=== PATIENT | female | born 1955 | race Caucasian/White ===

== ENCOUNTER → 2023-11-12 15:59 | Outpatient (REF) | payer MEDICARE, OTHER, SELFPAY | LOC: WDC 15:59 | PROVIDERS: ATTENDING PHYSICIAN Family Medicine | DX: Z12.31 Encounter for screening mammogram for malignant neoplasm of breast (principal) | CPT/HCPCS: 77063; 77067 ==

== ENCOUNTER → 2023-12-03 09:18 | Outpatient (REF) | payer MEDICARE, OTHER, SELFPAY | LOC: RAD 09:18 | PROVIDERS: ATTENDING PHYSICIAN Family Medicine | DX: Z13.820 Encounter for screening for osteoporosis (principal); Z78.0 Asymptomatic menopausal state | CPT/HCPCS: 77080 ==

== ENCOUNTER 2024-08-23 18:41 | Emergency (ER) | payer MEDICARE, OTHER, SELFPAY ==
[2024-08-23 18:43] VITALS: BP 117/67
[2024-08-23 19:20] VITALS: BP 113/64
[2024-08-23 19:29] VITALS: BMI 25.6
--- NOTE | 2024-08-23 19:35 | ED.GENMED ---
History of Present Illness
General
Chief Complaint: Abdominal Symptoms
Source: patient
Exam Limitations: none
Time Seen by Provider: 08/23/24 19:16
History of Present Illness
History of Present Illness:
69-year-old female presents with onset of nausea vomiting diarrhea starting last evening. She is very fatigued. No chills or sweats. No chest pain or shortness of breath. She denies any blood in the vomit or the stool. No recent antibiotics.
She was around a sick family member with similar symptoms. No other complaints
Past History
Past History
ED Past Medical History: None
ED Past Surgical History: Cholecystectomy and Orthopedic
Social History
Tobacco: Non-smoker
Alcohol: Occasional
Personal:
Living: with family
Phy Exam
Physical Exam
Physical Exam:
General: Well-appearing female no acute respiratory distress
HEENT: Normocephalic atraumatic mucosa dry
Heart: Regular rate and rhythm no murmurs
Lungs: Clear no wheeze
Abdomen is soft nontender normal bowel sounds no guarding or rebound tenderness
Extremities: No cyanosis
Course
Orders/Labs/Results
Orders:
Orders
08/23/24 19:29
STOOL [C difficile Antigen & Toxins] Urgent
BUBBA Source: Feces/Stool
Specimen Description:
Stool Culture Urgent
BUBBA Source: Feces/Stool
Specimen Description:
0.9% Sodium Chloride 1000 ml [Nss] 1,000 ml IV BOLUS
Ondansetron Injectable [Zofran] 4 mg IV NOW STA
08/23/24 19:44
Complete Blood Count/With Diff Urgent
Comprehensive Metabolic Panel Urgent
Lipase Urgent
08/23/24 20:53
Acetaminophen [Tylenol] 650 mg PO NOW STA
Abnormal Lab Results
08/23/24
19:44
MCHC 32.9 L g/dL
(33.0-37.0)
Absolute Lymphs (auto) 0.2 L 10^3/uL
(1.2-3.4)
Neutrophils % 92.1 H %
(42.2-75.2)
Lymphocytes % 3.3 L %
(20.5-51.1)
Potassium 3.2 L mmol/L
(3.5-5.1)
BUN 25 H mg/dl
(7-17)
Glucose 162 H mg/dl
(70-99)
08/23/24 19:44
08/23/24 19:44
Vital Signs
Initial and Last Documented VS:
Initial Vital Signs
Temp Pulse Resp BP Pulse Ox
99 F 99 20 117/67 100
08/23/24 18:43 08/23/24 18:43 08/23/24 18:43 08/23/24 18:43 08/23/24 18:43
Last Documented Vital Signs
Temp Pulse Resp BP Pulse Ox
99 F 99 20 111/60 96
08/23/24 18:43 08/23/24 18:43 08/23/24 18:43 08/23/24 21:00 08/23/24 21:15
MDM/Problems Addressed
Differential Diagnosis Includes:
Patient with nausea vomiting and diarrhea. Recent sick contact. Could be viral illness. Consider electrolyte abnormality or dehydration. Abdomen exam benign. Considered imaging but not indicated at this time
Check stool cultures if able. Labs pending. Hydration and Zofran ordered
*Critical Care Note
Total Time (30-74mins, 75-104mins- exclusive of procedures): Not Applicable
Update Note
Update Note:
Patient reexamined feeling better nausea improved now tolerating oral fluids. Not able to provide stool sample at this point. Labs reviewed without significant finding. Suspect underlying viral illness. Recommended clear liquids prescribe
Zofran. Stable for discharge
ED Attending Note
-
Portions of this chart may have been created with voice recognition software.� Occasional wrong word or��sound alike� substitutions may have occurred due to the inherent limitations of voice recognition software.
Discharge Plan
Departure
Patient Disposition: Home (Routine Discharge)
Date of Disposition: 08/23/24
Time of Disposition: 21:32
Patient with high blood pressure during this ER visit?: No
Discharge Problem:
Nausea, vomiting and diarrhea
Instructions: Nausea and Vomiting, Adult (DC)
Prescriptions:
New
ondansetron 4 mg tablet,disintegrating
4 mg PO Q8H PRN (Reason: nausea and vomiting) Qty: 10 0RF
No Action
Bactrim
1 tab PO BID
Patient Comments:
PATIENT STATED SHE RECENTLY STARTED ON THIS--DOES NOT KNOW DOSAGE -started 01/06/10 for 10 days
Pepcid
1 tab PO PRN PRN (Reason: ABD. PAIN)
Patient Comments:
OTC DOSE
omeprazole [Prilosec] 40 MG capsule,delayed release(DR/EC)
40 mg PO DAILY Qty: 30 0RF
Patient Comments:
new prescription-not started yet
hydrocodone-acetaminophen 5 MG/500 MG tablet
1 tab PO Q4HPRN PRN (Reason: pain) Qty: 15 0RF
Patient Comments:
new prescription-not started yet
guaifenesin [Mucus Relief ER] 600 MG tablet extended release 12hr
600 mg PO Q12H
Referrals:
Aida Kendall DO [Family Provider] -
Activity Restrictions/Additional Instructions:
Drink plenty clear liquids. Use Zofran if needed for nausea. Advance to bland diet as tolerated. Return for worsening symptoms otherwise follow-up with your doctor
Interventions
Interventions:
*Risk Screen - Suicide Last Done: 08/23/24 18:43
*General Assessment Last Done: 08/23/24 19:30
*Neglect/Abuse Screening Last Done: 08/23/24 18:43
ED- Fall Risk Assessment Last Done: 08/23/24 19:31
*ED COVID-19 Vaccine History Last Done: 08/23/24 19:30
[id number] Assessment Last Done: 08/23/24 19:31
Discharge Date and Time
Print Language: SUDANESE
[2024-08-23] MEDS: NSS 1000 IV (19:42)
[2024-08-23] MEDS: ZOFRAN 4 MG IV (19:46)
[2024-08-23 19:53] LABS: % Basophils 0.2 % (0-2); % Immature Granulocytes 0.2 % (0-0.5); % Lymphocytes 3.3 % (20.5-51.1); % Monocytes 4.2 % (1.7-9.3); % Neutrophils 92.1 % (42.2-75.2); Absolute Lymphocytes 0.2 10^3/uL (1.2-3.4); Absolute Monocytes 0.3 10^3/uL (0.1-0.6); Absolute Neutrophils 6.1 10^3/uL (1.4-6.5); Hematocrit 41.7 % (37.0-47.0); Hemoglobin 13.7 g/dL (12.0-16.0); Mean Corp Hgb Conc. 32.9 g/dL (33.0-37.0); Mean Corpuscular Hgb 30.2 pg (27.0-31.0); Mean Corpuscular Volume 91.9 fL (81.0-99.0); Mean Platelet Volume 9.5 fL (7.4-10.4); Nucleated Red Blood Cells % 0 %; Platelet Count 241 10^3/uL (130-400); Red Blood Cell Count 4.54 10^6/uL (4.20-5.40); Red Cell Dist. Width 13.5 % (11.5-14.5); White Blood Cell Count 6.7 10^3/uL (4.8-10.8)
[2024-08-23 19:59] LABS: Albumin 4.3 g/dl (3.5-5.0)
[2024-08-23 20:00] VITALS: BP 108/56
[2024-08-23 20:10] LABS: ALT (SGPT) 26 U/L (0-35); AST (SGOT) 29 U/L (14-36); Alkaline Phosphatase 86 U/L (38-126); Blood Urea Nitrogen 25 mg/dl (7-17); Calcium 8.7 mg/dl (8.4-10.2); Carbon Dioxide 25 mmol/L (22-30); Chloride 103 mmol/L (98-107); Estimated Creatinine Clearance 91 ml/min; Glucose 162 mg/dl (70-99); Lipase 32 U/L (23-300); Potassium 3.2 mmol/L (3.5-5.1); Sodium 140 mmol/L (135-145); Total Bilirubin 0.5 mg/dl (0.2-1.3); Total Protein 6.8 g/dl (6.3-8.2); eGFR > 60.00
[2024-08-23] MEDS: TYLENOL 650 MG PO (20:56)
[2024-08-23 21:00] VITALS: BP 111/60
== END 2024-08-23 21:45 | disposition home or self-care (01) ==
LOC: EMR 18:41
PROVIDERS: Physician Assistant; EMERGENCY PHYSICIAN Emergency Medicine; FAMILY PHYSICIAN Family Medicine
DX: R11.2 Nausea with vomiting, unspecified (principal); R19.7 Diarrhea, unspecified; Z90.49 Acquired absence of other specified parts of digestive tract
CPT/HCPCS: 96374; 96361; 99284; 80053; 83690; 85025

== ENCOUNTER → 2024-11-18 10:22 | Outpatient (REF) | payer MEDICARE, OTHER, SELFPAY | LOC: WDC 10:22 | PROVIDERS: ATTENDING PHYSICIAN Family Medicine | DX: Z12.31 Encounter for screening mammogram for malignant neoplasm of breast (principal) | CPT/HCPCS: 77063; 77067 ==

== ENCOUNTER → 2025-04-28 11:04 | Outpatient (REF) | payer MEDICARE, OTHER, SELFPAY ==
[2025-04-28 12:06] LABS: Hematocrit 37.8 % (37.0-47.0); Hemoglobin 12.6 g/dL (12.0-16.0); Mean Corp Hgb Conc. 33.3 g/dL (33.0-37.0); Mean Corpuscular Volume 91.1 fL (81.0-99.0); Nucleated Red Blood Cells % 0 %; Platelet Count 270 10^3/uL (130-400); Red Cell Dist. Width 13.3 % (11.5-14.5)
[2025-04-28 12:43] LABS: ALT (SGPT) 32 U/L (0-35); AST (SGOT) 28 U/L (14-36); Albumin 4.7 g/dl (3.5-5.0); Alkaline Phosphatase 99 U/L (38-126); Blood Urea Nitrogen 23 mg/dl (7-17); Calcium 9.9 mg/dl (8.4-10.2); Carbon Dioxide 30 mmol/L (22-30); Chloride 104 mmol/L (98-107); Glucose 109 mg/dl (70-99); HDL Cholesterol 92 mg/dl; LDL Cholesterol, Calculated 77 mg/dl; Potassium 4.4 mmol/L (3.5-5.1); Sodium 140 mmol/L (135-145); Total Protein 7.4 g/dl (6.3-8.2); Very Low Density Lipoprotein 10 mg/dl (0-30); eGFR > 60.00
[2025-04-28 14:15] LABS: Glycohemoglobin (HgbA1c) 5.7 % (4.0-5.6)
== END ==
LOC: REG 11:04
PROVIDERS: ATTENDING PHYSICIAN Family Medicine
DX: Z00.00 Encounter for general adult medical examination without abnormal findings (principal); R73.01 Impaired fasting glucose; E78.5 Hyperlipidemia, unspecified
CPT/HCPCS: 36415; 80053; 80061; 83036; 85025